=== PATIENT | female | born 1995 | race African-American/Black ===

== ENCOUNTER 2017-12-23 14:00 | Emergency (ER) | payer BC, OTHER ==
--- NOTE | 2017-12-23 15:35 | ED ---
Influenza-Like Illness - HPI Summary HPI Summary: 22 female presents to ED with complaints of cough, body aches, fever/chills, congestion and sore throat. Admits to sick contacts at school. States symptoms began , ~5 (101f) days ago however worsened yesterday with fever and body aches. Admits to some mucus production. No nausea, vomiting, abdominal pain , diarrhea or other complaints. Admits to headache. Has not taken any medication. No PMHx. No chest pain, shortness of breath, trouble breathing. - History of Current Complaint Chief Complaint: EDGeneral Time Seen by Provider: 12/23/17 14:54 Hx Obtained From: Patient Onset/Duration: Gradual Onset, Lasting Days, Still Present, Worse Since Severity: Moderate Associated Signs & Symptoms: Fever, Myalgia, Cough, Sore Throat, Nasal Congestion, Headache - Allergy/Home Medications Allergies/Adverse Reactions: Allergies Allergy/AdvReac Type Severity Reaction Status Date / Time amoxicillin Allergy Rash And Verified 12/23/17 14:07 Itching PMH/Surg Hx/FS Hx/Imm Hx Endocrine/Hematology History: Denies: Hx Anticoagulant Therapy Cardiovascular History: Denies: Hx Hypertension Respiratory History: Denies: Hx Asthma - Surgical History Surgery Procedure, Year, and Place: n/a - Immunization History Date of Influenza Vaccine: did not get for [id number] Immunizations Up to Date: Yes Infectious Disease History: No Infectious Disease History: Denies: Traveled Outside the [place] in Last 30 Days - Family History Known Family History: Positive: None - Social History Alcohol Use: Occasionally Substance Use Type: Reports: None Smoking Status (MU): Never Smoked Tobacco Review of Systems Positive: Fever, Chills, Fatigue Eyes: Negative Positive: Sore Throat, Ear Ache, Nasal Discharge Cardiovascular: Negative Positive: Cough Gastrointestinal: Negative Positive: Myalgia Positive: Headache All Other Systems Reviewed And Are Negative: Yes Physical Exam Triage Information Reviewed: Yes Vital Signs On Initial Exam: Initial Vitals Temp Pulse Resp BP Pulse Ox 98.2 F 96 18 117/74 99 12/23/17 14:03 12/23/17 14:03 12/23/17 14:03 12/23/17 14:03 12/23/17 14:03 Vital Signs Reviewed: Yes Appearance: Positive: No Pain Distress, Well-Nourished, Ill-Appearing Skin: Positive: Warm, Skin Color Reflects Adequate Perfusion, Dry. Negative: Cold, Numb, Cyanosis @ Head/Face: Positive: Normal Head/Face Inspection Eyes: Positive: Normal, Conjunctiva Clear ENT: Positive: Hearing grossly normal, Pharyngeal erythema, Nasal congestion, TMs normal, Uvula midline. Negative: Nasal drainage, Tonsillar swelling, Tonsillar exudate Neck: Positive: Supple, Nontender, No Lymphadenopathy Respiratory/Lung Sounds: Positive: Clear to Auscultation, Breath Sounds Present , Wheezes - diffuse, expiratory clears with cough. Negative: Rales, Rhonchi Cardiovascular: Positive: Normal, RRR, Pulses are Symmetrical in both Upper and Lower Extremities. Negative: Murmur, Rub Abdomen Description: Positive: Nontender, Soft Bowel Sounds: Positive: Present Musculoskeletal: Positive: Normal, Strength/ROM Intact. Negative: Limited @, Interruption @, Pain @ Neurological: Positive: Normal, Sensory/Motor Intact, Alert, Oriented to Person Place, Time Diagnostics - Vital Signs Vital Signs Temp Pulse Resp BP Pulse Ox 12/23/17 14:03 98.2 F 96 18 117/74 99 - Laboratory Lab Results: Lab Results 12/23/17 Range/Units 14:13 Influenza A (Rapid) Positive H (Negative) Influenza B (Rapid) Negative (Negative) Lab Statement: Any lab studies that have been ordered have been reviewed, and results considered in the medical decision making process. Flu Symptom Course/Dx - Course Course Of Treatment: influenza obtained and positive. will treat symptomatically and with tamiflu. patient agrees and understands. no other concerns at this time. follow up with pcp. ibuprofen/tylenol for body aches and fever. fluids rest. contact precautions. aware of worsening signs and symptoms to watch out for. normal vitals. - Diagnoses Differential Diagnosis/HQI/PQRI: Positive: Bronchitis, Influenza, Pneumonia, Upper Respiratory Infection Provider Diagnoses: Influenza A Discharge - Discharge Plan Condition: Stable Disposition: HOME Prescriptions: Oseltamivir CAP* [Tamiflu CAP*] 75 mg PO BID #10 cap Patient Education Materials: Influenza (ED) Referrals: [facility] - Jason IRVIN [Primary Care Provider] - Additional Instructions: Take prescribed medication as directed. Ibuprofen/tylenol for pain and fever. Increase fluid intake. Get plenty of rest. Any new or worsening symptoms, or if symptoms persist over 48-72 hours please seek medical attention, Follow up with PCP.
[2017-12-23 15:50] VITALS: BP 115/84
== END 2017-12-23 15:48 | disposition home or self-care (01) ==
LOC: ED 14:00
DX: J11.1 Influenza due to unidentified influenza virus with other respiratory manifestations (principal); Z88.3 Allergy status to other anti-infective agents
CPT/HCPCS: 87502; 99282